=== PATIENT | female | born 1995 | race African-American/Black ===

== ENCOUNTER 2018-07-23 13:27 | Emergency (ER) | payer OTHER ==
[~2018-07-23] VITALS: Ht 180.3 cm; Wt 102.1 kg
[2018-07-23 13:37] VITALS: TEMP 36.8; Ht 180.3 cm; Wt 102.1 kg
[2018-07-23] MEDS ORDERED: SODIUM CHLORIDE 0.9% 1000ML 1,000 ML IV STA (13:53)
[2018-07-23] MEDS ORDERED: PROCHLORPERAZINE 5 MG/ML 2 ML VIAL IV STA (13:53)
[2018-07-23] MEDS ORDERED: KETOROLAC TROMETHAMINE 30 MG/ML VIAL IV STA (13:53)
[2018-07-23] MEDS ORDERED: ACETAMINOPHEN IV 100 ML IV STA (13:53)
[2018-07-23] MEDS ORDERED: DiphenhydrAMINE HCL 50 MG/ML VIAL IV STA (13:53)
--- NOTE | 2018-07-23 14:02 | EMERGENCY ROOM VISIT NOTE ---
History Report prepared by Ignacioibheidi: Sofia Cisse Under the Supervision of: Dr. Jermaine Ly M.D. First contact with patient: 13:46 Chief Complaint: HEADACHE Stated Complaint: HEADACHE History of Present Illness The patient is a 22 year old female who presents to the Emergency Room with complaints of a persistent headache for the past 8 days. She rates her pain as a 7/10 in severity. Ibuprofen and Zyrtec have provided minimal relief. She states she initially thought the pain was from her sinuses because she has a history of allergies and is new to [place]. 2 days ago, her sinuses "drained", and her pain has persisted. She denies any history of migraine headaches. The pain "moves around" her head, from the top of her head, to her sinuses. Yesterday, her pain briefly resolved. She denies any neck pain or stiffness. She has been sensitive to light. She denies any recent falls or trauma. She has been nauseous but has not vomited. Yesterday she had a sore throat. She denies any recent diarrhea. She does occasionally feel "a wave of heat" in the middle of the night but has not checked her temperature. She denies any urinary symptoms. The patient denies any recent vision changes and states she does regularly see an eye doctor. The patient denies any recent tick exposures or bites. 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 A total of 10 systems reviewed and were otherwise negative. Past Medical & Surgical Medical Problems: (1) Seasonal allergies Family History Diabetes mellitus Social History Smoking Status: Never Smoker Alcohol Use: occasionally Drug Use: none Marital Status: single Housing Status: lives with roommate Occupation Status: [employer] student Current/Historical Medications No Active Prescriptions or Reported Meds Allergies Coded Allergies: No Known Allergies (Unverified , 07/23/18) Physical Exam Vital Signs Date Time Temp Pulse Resp B/P (MAP) Pulse Ox O2 Delivery O2 Flow Rate FiO2 07/23/18 15:22 87 16 125/69 97 Room Air 07/23/18 13:37 36.8 102 20 140/96 99 Room Air Physical Exam GENERAL: Patient is in no acute distress. HEENT: No acute trauma, normocephalic atraumatic, mucous membranes moist, no nasal congestion, no scleral icterus. Pupils equal and reactive to light. NECK: No stridor, no adenopathy, no meningismus, trachea is midline. Flexes chin to chest with no pain or difficulty. LUNGS: Clear to auscultation bilaterally, no wheeze, no rhonchi, breath sounds equal. HEART: Without murmurs gallops or rubs, regular rate and rhythm. ABDOMEN: Soft, nontender, bowel sounds positive, no hernias, no peritonitis. EXTREMITIES: No cyanosis or edema, full range of motion of all the joints without pain or difficulty, no signs for acute trauma. NEUROLOGIC: Oriented x 3, no acute motor or sensory deficits, no focal weakness. No cerebellar deficits. SKIN: No rash, no jaundice, no diaphoresis Medical Decision & Procedures ER Provider Diagnostic Interpretation: Radiology results as stated below per my review and radiologist interpretation: CT ANGIOGRAPHY HEAD COMBO CT DOSE: 672.08 mGy.cm CLINICAL HISTORY: Severe headache TECHNIQUE: Unenhanced images were obtained the brain. CT angiography was then performed in a dynamic helical fashion during intravenous administration of 93 cc of Optiray 320. MIP imaging was acquired. A dose lowering technique was utilized adhering to the principles of ALARA. COMPARISON STUDY: None. FINDINGS: No intra or extra-axial mass lesions are visualized. There is no CT evidence of acute cortical infarction. There is no midline shift. There is no acute hemorrhage. There is no hydrocephalus. There is no evidence of acute sinusitis. Post contrast images reveal no major intracranial branch occlusions. There are no lesion suspicious for aneurysm. There is no evidence of dural venous sinus thrombosis. IMPRESSION: Normal study Electronically signed by: Willie Huerta M.D. 07/23/2018 3:08 PM Laboratory Results 07/23/18 14:05 Red Blood Count 4.72, Mean Corpuscular Volume 79.9, Mean Corpuscular Hemoglobin 27.1, Mean Corpuscular Hemoglobin Concent 34.0, Mean Platelet Volume 9.9, Neutrophils (%) (Auto) 36.9, Lymphocytes (%) (Auto) 50.2, Monocytes (%) (Auto) 8.7, Eosinophils (%) (Auto) 2.1, Basophils (%) (Auto) 2.1, Neutrophils # (Auto) 1.57, Lymphocytes # (Auto) 2.14, Monocytes # (Auto) 0.37, Eosinophils # (Auto) 0.09, Basophils # (Auto) 0.09 07/23/18 14:05 Test 07/23/18 14:00 07/23/18 14:05 Urine Color YELLOW Urine Appearance CLEAR (CLEAR) Urine pH 6.5 (4.5-7.5) Urine Specific [place] 1.006 (1.000-1.030) Urine Protein NEG (NEG) Urine Glucose (UA) NEG (NEG) Urine Ketones NEG (NEG) Urine Occult Blood NEG (NEG) Urine Nitrite NEG (NEG) Urine Bilirubin NEG (NEG) Urine Urobilinogen NEG (NEG) Urine Leukocyte Esterase NEG (NEG) White Blood Count 4.26 K/uL (4.8-10.8) Red Blood Count 4.72 M/uL (4.2-5.4) Hemoglobin 12.8 g/dL (12.0-16.0) Hematocrit 37.7 % (37-47) Mean Corpuscular Volume 79.9 fL (80-100) Mean Corpuscular Hemoglobin 27.1 pg (25-34) Mean Corpuscular Hemoglobin Concent 34.0 g/dl (32-36) Platelet Count 228 K/uL (130-400) Mean Platelet Volume 9.9 fL (7.4-10.4) Neutrophils (%) (Auto) 36.9 % Lymphocytes (%) (Auto) 50.2 % Monocytes (%) (Auto) 8.7 % Eosinophils (%) (Auto) 2.1 % Basophils (%) (Auto) 2.1 % Neutrophils # (Auto) 1.57 K/uL (1.4-6.5) Lymphocytes # (Auto) 2.14 K/uL (1.2-3.4) Monocytes # (Auto) 0.37 K/uL (0.11-0.59) Eosinophils # (Auto) 0.09 K/uL (0-0.5) Basophils # (Auto) 0.09 K/uL (0-0.2) RDW Standard Deviation 38.2 fL (36.4-46.3) RDW Coefficient of Variation 13.1 % (11.5-14.5) Immature Granulocyte % (Auto) 0.0 % Immature Granulocyte # (Auto) 0.00 K/uL (0.00-0.02) Red Blood Cell Morphology Unremarkable Anion Gap 5.0 mmol/L (3-11) Est Creatinine Clear Calc Drug Dose 119.4 ml/min Estimated GFR () 95.6 Estimated GFR (Non- 82.5 BUN/Creatinine Ratio 11.6 (10-20) Calcium Level 8.6 mg/dl (8.5-10.1) Human Chorionic Gonadotropin, Qual NEG (NEG) Lyme Disease IgG Antibody NEG (NEG) Lyme Disease IgM Antibody NEG (NEG) Laboratory results reviewed by me. Medications Administered Medications (Trade) Dose Ordered Sig/Cory Route Start Time Stop Time Status Last Admin Dose Admin Prochlorperazine Edisylate (Compazine Inj) 10 mg NOW STAT IV 07/23/18 13:53 07/23/18 13:57 DC 07/23/18 14:13 10 MG Sodium Chloride 1,000 ml @ 999 mls/hr Q1H1M STAT IV 07/23/18 13:53 07/23/18 14:53 DC 07/23/18 14:12 999 MLS/HR Ketorolac Tromethamine (Toradol Inj) 15 mg NOW STAT IV 07/23/18 13:53 07/23/18 13:57 DC 07/23/18 14:13 15 MG Diphenhydramine HCl (Benadryl Inj) 50 mg NOW STAT IV 07/23/18 13:53 07/23/18 13:57 DC 07/23/18 14:13 50 MG Acetaminophen 100 ml @ 400 mls/hr NOW STAT IV 07/23/18 13:53 07/23/18 14:07 DC 07/23/18 14:12 400 MLS/HR ED Course 1347: The patient was evaluated in room A12. A complete history and physical exam was performed. 1353: Acetaminophen 100 ml @ 400 mls/hr IV, Benadryl 50 mg IV, Toradol 15 mg IV , NSS 1000 ml @ 999 mls/hr IV, Compazine 10 mg IV. 1535: I reevaluated the patient. She is feeling better. I discussed her results and discharge instructions and she verbalized complete understanding and agreement. Medical Decision The differential diagnoses considered include: migraine headache, tension headache, dehydration, UTI, , intracranial bleeding, aneurysm, meningitis. There is no leukocytosis or concerning anemia. No significant electrolyte abnormality, kidney failure or hepatitis. testing is negative. Urinalysis does not show infection. Brain CT shows no acute bleed or mass- effect. There is no evidence for aneurysm. Lyme disease testing is negative. On exam, the patient is not febrile, there is no meningismus, no focal neurologic findings. She does not appear toxic. Patient presents with a headache which has waxed and waned throughout the last week or so. Yesterday, it actually was gone for a while. The headache returned this morning and she presents for evaluation. Patient received IV saline, IV Compazine, IV Benadryl and IV Toradol. She was given IV Tylenol, she is resting and feels improved. The patient's headache is likely migrainous and or related to her congestion and allergies. I find no evidence for meningismus or meningitis, she does not have evidence for intracranial bleeding. She is not toxic. She is being discharged with rest and hydration. If worsening, she can return. Medication Reconcilliation Current Medication List: was personally reviewed by me Blood Pressure Screening Patient's blood pressure: Elevated blood pressure Blood pressure disposition: Elevated BP felt to be situational Impression Primary Impression: Headache Scribe Attestation The scribe's documentation has been prepared under my direction and personally reviewed by me in its entirety. I confirm that the note above accurately reflects all work, treatment, procedures, and medical decision making performed by me. Departure Information Dispostion Home / Self-Care Prescriptions No Active Prescriptions or Reported Meds Patient Instructions My [facility] Additional Instructions brain CT scan was ok labs were ok rest fluids motrin and or tylenol for pain may use zyrtec and sudafed for congestion return if worsening
[2018-07-23 14:25] LABS: HEMATOCRIT 37.7 % (37-47); HEMOGLOBIN 12.8 g/dL (12.0-16.0); MEAN CELL VOLUME 79.9 fL (80-100); MEAN CORPUSCULAR HEMOGLOBIN 27.1 pg (25-34); MEAN PLATELET VOLUME 9.9 fL (7.4-10.4); PLATELET COUNT 228 K/uL (130-400); RED CELL DISTRIBUTION WIDTH CV 13.1 % (11.5-14.5); RED CELL DISTRIBUTION WIDTH SD 38.2 fL (36.4-46.3); WHITE BLOOD COUNT 4.26 K/uL (4.8-10.8)
[2018-07-23] MEDS ORDERED: OPTIRAY 320 IV PRN (14:30)
[2018-07-23 14:41] LABS: CALCIUM 8.6 mg/dl (8.5-10.1); CREATININE 0.98 mg/dl (0.60-1.20); POTASSIUM 3.9 mmol/L (3.5-5.1)
[2018-07-23 14:53] LABS: BASO % 2.1 %; BASO ABS # 0.09 K/uL (0-0.2); EOS % 2.1 %; EOS ABS # 0.09 K/uL (0-0.5); LYMPH % 50.2 %; LYMPH ABS # 2.14 K/uL (1.2-3.4); MONO % 8.7 %; MONO ABS # 0.37 K/uL (0.11-0.59); NEUT % 36.9 %; NEUT ABS # 1.57 K/uL (1.4-6.5)
--- NOTE | 2018-07-23 15:09 | DIAGNOSTIC IMAGING REPORT ---
CT ANGIOGRAPHY HEAD COMBO CT DOSE: 672.08 mGy.cm CLINICAL HISTORY: Severe headache TECHNIQUE: Unenhanced images were obtained the brain. CT angiography was then performed in a dynamic helical fashion during intravenous administration of 93 cc of Optiray 320. MIP imaging was acquired. A dose lowering technique was utilized adhering to the principles of ALARA. COMPARISON STUDY: None. FINDINGS: No intra or extra-axial mass lesions are visualized. There is no CT evidence of acute cortical infarction. There is no midline shift. There is no acute hemorrhage. There is no hydrocephalus. There is no evidence of acute sinusitis. Post contrast images reveal no major intracranial branch occlusions. There are no lesion suspicious for aneurysm. There is no evidence of dural venous sinus thrombosis. IMPRESSION: Normal study Electronically signed by: Willie Huerta M.D. 07/23/2018 3:08 PM Dictated Date/Time: 07/23/2018 3:04 PM
[2018-07-23 15:22] VITALS: BP 125/69; PULSE 87; O2SAT 97
== END 2018-07-23 16:13 | disposition home or self-care (01) ==
LOC: C.EDB 13:30 → C.EDA 16:13
DX: R51 Headache (principal)